=== PATIENT | female | born 1970 | race Caucasian/White ===

== ENCOUNTER 2023-03-21 13:37 | Day surgery (SDC) | payer OTHER ==
[2023-03-20 10:33] VITALS: BMI 38.7
[2023-03-21] MEDS ORDERED: CEFAZOLIN 2 GM VIAL ONE (14:57)
[2023-03-21] MEDS ORDERED: Sodium Chloride 0.9% 100 ML ONE (14:57)
[2023-03-21] MEDS ORDERED: Acetaminophen 500 MG TAB ONE (15:33)
[2023-03-21] MEDS ORDERED: Ketorolac Tromethamine 30 MG/ML VIAL ONE (15:33)
[2023-03-21] MEDS ORDERED: fentaNYL PF 100 MCG/2 ML SYRINGE ONE (17:16)
[2023-03-21] MEDS ORDERED: Dexmedetomidine 200 MCG/2 ML VIAL ONE (17:16)
[2023-03-21] MEDS ORDERED: EPINEPHrine 1 MG/ML AMP ONE (17:27)
[2023-03-21] MEDS ORDERED: Lidocaine 1% PF 5 ML VIAL ONE ×2 (17:27→17:56)
[2023-03-21] MEDS ORDERED: Bupivacaine 0.25% HCL 30 ML VIAL ONE (17:27)
[2023-03-21] MEDS ORDERED: PROPOFOL 200 MG/20 ML VIAL ONE (17:56)
[2023-03-21] MEDS ORDERED: PHENYLEPHRINE-NS 100 MCG/ML 10 ML SYRINGE ONE (17:56)
[2023-03-21] MEDS ORDERED: Ondansetron PF 4 MG/2 ML Vial ONE (17:56)
== END 2023-03-21 19:48 | disposition home or self-care (01) ==
LOC: SDC 13:37
PROVIDERS: ATTEND Specialist
PROC: 05H533Z Insertion of Infusion Device into Right Subclavian Vein, Percutaneous Approach (ICD-10-PCS; principal; 2023-03-21)
DX: C20 Malignant neoplasm of rectum (principal); I10 Essential (primary) hypertension; E11.9 Type 2 diabetes mellitus without complications; E66.01 Morbid (severe) obesity due to excess calories; Z68.38 Body mass index [BMI] 38.0-38.9, adult; Z79.84 Long term (current) use of oral hypoglycemic drugs; Z79.899 Other long term (current) drug therapy
CPT/HCPCS: 71045; C1788; J0171; J1642; J1885; J2405; J2704; J3490; S0020

== ENCOUNTER 2023-04-12 15:30 | Inpatient (IN) | payer OTHER ==
[2023-04-15] MEDS ORDERED: fentaNYL 50 mcg/mL 1 mL Vial ONE ×2 (10:47→13:30)
[2023-04-15] MEDS ORDERED: Midazolam HCl 2 mg/2 ml Vial ONE (10:47)
[2023-04-15] MEDS ORDERED: Bupivacaine PF 0.5% 30 ML VIAL ONE (10:47)
[2023-04-15] MEDS ORDERED: Famotidine/PF 20 mg/2ml Vial ONE (11:55)
[2023-04-15] MEDS ORDERED: Sodium Chloride 0.9% 100 ML ONE (11:57)
[2023-04-15] MEDS ORDERED: cefOXitin 2 GM VIAL ONE (11:57)
[2023-04-15] MEDS ORDERED: Bupivacaine HCl 0.5%/Epinephrine 1:200,000/PF 30 ml Vial ONE (12:20)
[2023-04-15] MEDS ORDERED: Rocuronium Bromide 10 MG/ML (10ML VIAL) ONE (12:20)
[2023-04-15] MEDS ORDERED: Glycopyrrolate 0.2 MG/ML 5 ML SYRINGE ONE (12:20)
[2023-04-15] MEDS ORDERED: PROPOFOL 200 MG/20 ML VIAL ONE (12:20)
[2023-04-15] MEDS ORDERED: Dexamethasone 20 MG/5 ML VIAL ONE (12:20)
[2023-04-15] MEDS ORDERED: NEOSTIGMINE 3 MG/3 ML SYR 3 MG/3 ML SYRINGE ONE (12:20)
[2023-04-15] MEDS ORDERED: Lidocaine 1% PF 5 ML VIAL ONE (12:20)
[2023-04-15] MEDS ORDERED: Promethazine HCl 25 MG/ML VIAL IM PRN (13:38)
[2023-04-15] MEDS ORDERED: Dextrose 50% Abboject 50 ML SYRINGE SLOW IVP PRN ×2 (13:38)
[2023-04-15] MEDS ORDERED: Ipratropium/Albuterol 3 ML NEB NEB PRN (13:38)
[2023-04-15] MEDS ORDERED: hydrALAZINE 20 MG/ML VIAL SLOW IVP PRN (13:38)
[2023-04-15] MEDS ORDERED: HumaLOG 300 UNITS/3 ML VIAL SC PRN (13:38)
[2023-04-15] MEDS ORDERED: Glucagon 1 MG/ML KIT IM PRN ×2 (13:38)
[2023-04-15] MEDS ORDERED: Dextrose 5% in Water 1,000 ML IV PRN (13:38)
[2023-04-15] MEDS ORDERED: Ondansetron PF 4 MG/2 ML Vial IVP PRN (13:38)
[2023-04-15] MEDS ORDERED: HYDROmorphone 2 MG/ML VIAL ONE (13:39)
[2023-04-15] MEDS: Morphine 4 MG/ML VIAL SLOW IVP PRN ×4 (16:00→23:39)
[2023-04-15] MEDS: HYDROcodone/Acetaminophen 10/325 mg Tablet PO PRN (19:36)
[2023-04-15] MEDS: Famotidine/PF 20 mg/2ml Vial SLOW IVP SCH (19:37)
[2023-04-15] MEDS: Famotidine 20 MG TAB PO SCH (19:38)
[2023-04-15 19:39] VITALS: BMI 37.9
[2023-04-16] MEDS: HYDROcodone/Acetaminophen 10/325 mg Tablet PO PRN ×4 (04:43→23:39)
[2023-04-16] MEDS: Morphine 4 MG/ML VIAL SLOW IVP PRN ×2 (08:26→17:09)
[2023-04-16] MEDS: Valsartan 80 MG TAB PO SCH (08:30)
[2023-04-16] MEDS: Famotidine 20 MG TAB PO SCH ×2 (08:30→21:00)
[2023-04-16] MEDS: Hydrochlorothiazide 25 MG TAB PO SCH (08:31)
[2023-04-16] MEDS: Famotidine/PF 20 mg/2ml Vial SLOW IVP SCH ×2 (08:31→20:59)
[2023-04-16] MEDS: Ketorolac Tromethamine 30 MG/ML VIAL IVP PRN (11:35)
[2023-04-16] MEDS: Sodium Chloride 0.9% 1,000 ML IV SCH (14:08)
[2023-04-17] MEDS: Sodium Chloride 0.9% 1,000 ML IV SCH ×2 (02:15→17:48)
[2023-04-17] MEDS: HYDROcodone/Acetaminophen 10/325 mg Tablet PO PRN ×4 (03:23→17:47)
[2023-04-17] MEDS: Ketorolac Tromethamine 30 MG/ML VIAL IVP PRN (08:06)
[2023-04-17] MEDS: Valsartan 80 MG TAB PO SCH (08:07)
[2023-04-17] MEDS: Famotidine 20 MG TAB PO SCH ×2 (08:08→21:28)
[2023-04-17] MEDS: Hydrochlorothiazide 25 MG TAB PO SCH (08:08)
[2023-04-17] MEDS: Famotidine/PF 20 mg/2ml Vial SLOW IVP SCH ×2 (08:09→21:39)
[2023-04-17] MEDS ORDERED: Magnevist 469MG/ML 20 ML VIAL ONE (09:57)
[2023-04-17] MEDS: Morphine 4 MG/ML VIAL SLOW IVP PRN ×2 (12:21→21:28)
[2023-04-18] MEDS: Ketorolac Tromethamine 30 MG/ML VIAL IVP PRN (00:14)
[2023-04-18] MEDS: Sodium Chloride 0.9% 1,000 ML IV SCH ×2 (02:20→16:47)
[2023-04-18] MEDS: HYDROcodone/Acetaminophen 10/325 mg Tablet PO PRN ×3 (05:43→17:34)
[2023-04-18] MEDS: Hydrochlorothiazide 25 MG TAB PO SCH (08:43)
[2023-04-18] MEDS: Famotidine 20 MG TAB PO SCH (08:44)
[2023-04-18] MEDS: Valsartan 80 MG TAB PO SCH (08:44)
[2023-04-18] MEDS: Famotidine/PF 20 mg/2ml Vial SLOW IVP SCH (08:45)
[2023-04-18] MEDS ORDERED: Milk Of Magnesia 30 ML UDCUP PO SCH (09:45)
[2023-04-18 15:51] VITALS: BP 117/74; TEMP 99.2
[2023-04-18] MEDS: Morphine 4 MG/ML VIAL SLOW IVP PRN (16:44)
== END 2023-04-18 19:31 | disposition home or self-care (01) | DRG 330 ==
LOC: SURG A 04-15 09:58 → 2NO 04-15 15:58 → SURG A 04-15 15:59
PROVIDERS: ADMIT Surgery; ATTEND Surgery
PROC: 0D1N4Z4 Bypass Sigmoid Colon to Cutaneous, Percutaneous Endoscopic Approach (ICD-10-PCS; principal; 2023-04-15)
PROC: 3E033XZ Introduction of Vasopressor into Peripheral Vein, Percutaneous Approach (ICD-10-PCS; 2023-04-15)
DX: C20 Malignant neoplasm of rectum (principal); N82.3 Fistula of vagina to large intestine; E11.9 Type 2 diabetes mellitus without complications; I10 Essential (primary) hypertension; R13.10 Dysphagia, unspecified; K21.9 Gastro-esophageal reflux disease without esophagitis; D64.9 Anemia, unspecified; Z82.49 Family history of ischemic heart disease and other diseases of the circulatory system; Z83.3 Family history of diabetes mellitus; Z80.9 Family history of malignant neoplasm, unspecified
CPT/HCPCS: 36416; 70553; 97139; A9579; J0694; J1100; J1170; J1642; J1650; J1885; J2250; J2270; J2704; J3010; J3490; J7050; S0020; S0028

== ENCOUNTER 2023-04-12 15:44 | Outpatient (CLI) | payer OTHER ==
[2023-04-12 16:49] LABS: #Basophils 0.1 10x3/uL (0.0-0.2); #Eosinphils 0.1 10x3/uL (0.0-0.5); #Monocytes 0.3 10x3/uL (0.0-1.1); #Neutrophils 1.1 10x3/uL (1.5-8.4); %Basophils 2.7 % (0.0-2.0); %Eosinophils 1.9 % (0.0-6.0); %Lymphocytes 40.1 % (18.0-47.0); %Monocytes 12.2 % (0.0-10.0); %Neutrophils 42.7 % (40.0-75.0); Hemoglobin 10.7 g/dL (12.0-15.5); Mean Corpuscular HGB CONC 30.9 g/dL (32.0-36.0); Mean Corpuscular Hemoglobin 28.7 pg (27.0-33.0); Mean Corpuscular Volume 92.8 fl (81.6-98.3); Mean Platelet Volume 10.5 fl (7.4-10.4); Platelet Count 205 10x3/uL (150-450); RBC Distribution Width 13.2 % (11.5-14.5); Red Blood Cell (RBC) Count 3.73 10x6/uL (3.90-5.03); White Blood Cell (WBC) Count 2.6 10x3/uL (3.5-10.5)
[2023-04-12 16:52] LABS: Anion Gap 16 mmol/L (10-20); BUN (Urea Nitrogen) 36 mg/dL (9.8-20.1); Calc. Creatinine Clearance 0 mL/min (70-130); Calcium 9.1 mg/dL (7.8-10.44); Carbon Dioxide 24 mmol/L (22-29); Chloride 99 mmol/L (98-107); Estimated GFR 69; Glucose 100 mg/dL (70-105); Potassium 4.2 mmol/L (3.5-5.1); Sodium 135 mmol/L (136-145)
[2023-04-12 20:12] LABS: Hemoglobin A1c 6.4 % (4.0-6.0)
== END 2023-04-12 15:45 | disposition home or self-care (01) ==
LOC: LABBT 15:44
PROVIDERS: ATTEND Surgery
DX: Z01.812 Encounter for preprocedural laboratory examination (principal); C20 Malignant neoplasm of rectum
CPT/HCPCS: 80048; 83036; 85025

== ENCOUNTER 2023-05-06 13:42 | Outpatient (CLI) | payer OTHER | END 2023-05-06 13:43 | disposition home or self-care (01) | LOC: RAD 13:42 | PROVIDERS: ATTEND Internal Medicine Hematology & Oncology | DX: R05.9 Cough, unspecified (principal); R06.02 Shortness of breath; C20 Malignant neoplasm of rectum; J90 Pleural effusion, not elsewhere classified; J98.11 Atelectasis | CPT/HCPCS: 71046 ==

== ENCOUNTER 2023-05-23 08:00 | Outpatient (CLI) | payer OTHER | END 2023-05-23 08:01 | disposition home or self-care (01) | LOC: PET 08:00 | PROVIDERS: ATTEND Internal Medicine Hematology & Oncology | DX: C20 Malignant neoplasm of rectum (principal); C7A.1 Malignant poorly differentiated neuroendocrine tumors; J18.9 Pneumonia, unspecified organism; J90 Pleural effusion, not elsewhere classified; C78.7 Secondary malignant neoplasm of liver and intrahepatic bile duct; C77.5 Secondary and unspecified malignant neoplasm of intrapelvic lymph nodes | CPT/HCPCS: 78815; A9552 ==

== ENCOUNTER 2023-07-18 08:09 | Day surgery (SDC) | payer OTHER ==
[2023-07-18] MEDS ORDERED: Acetaminophen 500 MG TAB ONE (08:22)
[2023-07-18] MEDS ORDERED: diphenhydrAMINE 25 MG CAP ONE (08:23)
[2023-07-18] MEDS ORDERED: Acetaminophen 500 MG TAB PO SCH (08:30)
[2023-07-18] MEDS ORDERED: diphenhydrAMINE 25 MG CAP PO SCH (08:30)
[2023-07-18] MEDS ORDERED: FLU VACC QS2023-24(6MOS UP)/PF 60 MCG/0.5 ML SYRINGE IM ONE (10:00)
[2023-07-18 14:30] VITALS: BP 151/73; TEMP 97.7
== END 2023-07-18 14:31 | disposition home or self-care (01) ==
LOC: ONC/OP 08:09
PROVIDERS: ATTEND Internal Medicine Hematology & Oncology
DX: D64.9 Anemia, unspecified (principal); D69.59 Other secondary thrombocytopenia
CPT/HCPCS: 36430; 86850; 86900; 86901; P9016

== ENCOUNTER → 2023-07-30 | Outpatient (CLI) | payer OTHER | LOC: PET 11:00 | PROVIDERS: ATTEND Internal Medicine Hematology & Oncology | DX: C20 Malignant neoplasm of rectum (principal); C7A.1 Malignant poorly differentiated neuroendocrine tumors; C78.7 Secondary malignant neoplasm of liver and intrahepatic bile duct; C77.5 Secondary and unspecified malignant neoplasm of intrapelvic lymph nodes; J18.1 Lobar pneumonia, unspecified organism; J90 Pleural effusion, not elsewhere classified | CPT/HCPCS: 78815; A9552 ==

== ENCOUNTER 2023-08-15 13:11 | Outpatient (CLI) | payer OTHER | END 2023-08-15 13:12 | disposition home or self-care (01) | LOC: BICRAD 13:11 | PROVIDERS: ATTEND Radiology Radiation Oncology | DX: R05.9 Cough, unspecified (principal); R07.89 Other chest pain | CPT/HCPCS: 71046 ==

== ENCOUNTER 2023-08-22 07:57 | Day surgery (SDC) | payer OTHER ==
[2023-08-21 09:58] VITALS: BMI 33.2
[2023-08-22] MEDS ORDERED: Ipratropium/Albuterol 3 ML NEB ONE (09:47)
[2023-08-22] MEDS ORDERED: Lidocaine 4% PF 5 ML AMP ONE (09:47)
[2023-08-22] MEDS ORDERED: PROPOFOL 20 ML ONE (09:54)
[2023-08-22] MEDS ORDERED: Rocuronium Bromide 10 MG/ML (10ML VIAL) ONE ×2 (09:55→10:33)
[2023-08-22] MEDS ORDERED: Ondansetron PF 4 MG/2 ML Vial ONE ×2 (09:55→10:33)
[2023-08-22] MEDS ORDERED: Dexamethasone 4 mg/ml Vial ONE (09:55)
[2023-08-22] MEDS ORDERED: Lidocaine 1% PF 5 ML VIAL ONE (09:55)
[2023-08-22] MEDS ORDERED: fentaNYL PF 100 MCG/2 ML SYRINGE ONE (10:01)
[2023-08-22] MEDS ORDERED: Dexamethasone 20 MG/5 ML VIAL ONE (10:33)
[2023-08-22] MEDS ORDERED: PROPOFOL 200 MG/20 ML VIAL ONE (10:33)
[2023-08-22] MEDS ORDERED: SUGAMMADEX SODIUM 200 MG/2 ML VIAL ONE (10:43)
[2023-08-22] MEDS ORDERED: Tranexamic Acid 1,000 MG/10 ML VIAL ONE (11:04)
[2023-08-22] MEDS ORDERED: fentaNYL 50 mcg/mL 1 mL Vial ONE (11:21)
== END 2023-08-22 13:15 | disposition home or self-care (01) ==
LOC: SDC 07:57
PROVIDERS: ATTEND Internal Medicine
PROC: 0BBL8ZX Excision of Left Lung, Via Natural or Artificial Opening Endoscopic, Diagnostic (ICD-10-PCS; principal; 2023-08-22)
PROC: 0B9F8ZX Drainage of Right Lower Lung Lobe, Via Natural or Artificial Opening Endoscopic, Diagnostic (ICD-10-PCS; principal; 2023-08-22)
DX: R91.1 Solitary pulmonary nodule (principal); R59.0 Localized enlarged lymph nodes; E11.9 Type 2 diabetes mellitus without complications; K21.9 Gastro-esophageal reflux disease without esophagitis; I10 Essential (primary) hypertension; J44.9 Chronic obstructive pulmonary disease, unspecified; Z86.010 Personal history of colon polyps; Z85.048 Personal history of other malignant neoplasm of rectum, rectosigmoid junction, and anus; Z87.891 Personal history of nicotine dependence; Z79.84 Long term (current) use of oral hypoglycemic drugs; Z79.899 Other long term (current) drug therapy
CPT/HCPCS: 88112; 88172; 88173; 88177; 88305; 88341; 88342; J1100; J2405; J2704; J3010; J7620

== ENCOUNTER 2023-12-06 09:35 | Emergency (ER) | payer OTHER ==
[2023-12-06] MEDS ORDERED: Iopamidol-370 76% 500 ML MDV (1 ML CHARGE) ONE (10:49)
[2023-12-06 11:17] LABS: Bacteria/HPF None Seen HPF (None Seen); Bilirubin Negative (Negative); Blood, Urine 1+ (Negative); CAUTI Indications for Culture < 2yrs of age; Clarity Clear (Clear); Glucose, Urine (Dipstick) Normal (Negative); Ketone, Urine Negative (Negative); Leukocyte 250 Leu/uL (Negative); Nitrite Negative (Negative); Protein, Urine (Dipstick) 20 mg/dL (Neg-Trace); RBC/HPF 0-3 HPF (0-3); Specific Gravity, Urine 1.026 (1.002-1.036); Squamous Epithelial 0-3 HPF (0-3); Urobilinogen Normal mg/dL (Less than 2); pH, Urine 5.5 (5.0-9.0)
[2023-12-06 11:18] LABS: Urine Culture Reflex Yes Yes
[2023-12-06 11:35] LABS: #Basophils Less than 0.03 10x3/uL (0.0-0.2); %Basophils 0.4 % (0.0-1.0); %Eosinophils 2.9 % (0.0-10.0); %Lymphocytes 18.7 % (21.0-51.0); %Monocytes 6.2 % (0.0-10.0); %Neutrophils 71.4 % (42.0-75.0); Hematocrit 35.1 % (36.0-47.0); Hemoglobin 11.7 g/dL (12.0-16.0); Mean Corpuscular HGB CONC 33.3 g/dL (32.0-36.0); Mean Corpuscular Hemoglobin 31.5 pg (27.0-31.0); Mean Corpuscular Volume 94.4 fL (78.0-98.0); Mean Platelet Volume 9.9 fL (7.4-10.4); Platelet Count 163 10x3/uL (130-400); RBC Distribution Width 13.2 % (11.5-14.5); Red Blood Cell (RBC) Count 3.72 mill/uL (4.20-5.40)
[2023-12-06 11:57] LABS: ALT (SGPT) 24 U/L (8-55); AST (SGOT) 27 U/L (5-34); Albumin 4.1 g/dL (3.5-5.0); Alkaline Phosphatase 95 U/L (40-110); Anion Gap 13 mmol/L (10-20); BUN (Urea Nitrogen) 23 mg/dL (9.8-20.1); Bilirubin, Total 0.4 mg/dL (0.2-1.2); Calc. Creatinine Clearance 0 mL/min (70-130); Calcium 9.8 mg/dL (7.8-10.44); Carbon Dioxide 26 mmol/L (22-29); Chloride 103 mmol/L (98-107); Estimated GFR 53; Globulin 3.7 g/dL (2.4-3.5); Glucose 115 mg/dL (70-105); Potassium 3.8 mmol/L (3.5-5.1); Protein, Total 7.8 g/dL (6.0-8.3); Sodium 138 mmol/L (136-145)
== END 2023-12-06 13:37 | disposition home or self-care (01) ==
LOC: ERS 09:35
DX: R06.02 Shortness of breath (principal); C78.5 Secondary malignant neoplasm of large intestine and rectum; J44.9 Chronic obstructive pulmonary disease, unspecified; E11.9 Type 2 diabetes mellitus without complications; Z87.891 Personal history of nicotine dependence
CPT/HCPCS: 71275; 80053; 81001; 85025; 87086; 94760